=== PATIENT | female | born 1960 | race American Indian/Alaskan Native ===

== ENCOUNTER → 2024-07-04 | Day surgery (SDC) | payer MEDICARE ==
[~2024-07-04] MED LIST: ACETAMINOPHEN 1000 MG/100 ML 100 ML IV ONE; ACETAMINOPHEN-1 EAC4 PO; ADVAIR 250-501 EACH INH; AIMOVIG AU140 MG/1 M IM; APTIOM400 MG PO; ATORVASTATIN CA20 MG PO; CEFAZOLIN SODIUM 0 GM ONE; CELEBREX100 MG PO; CHERATUSSIN AC118 ML PO; CLARITIN-D 241 EACH PO; CRESTOR40 MG PO; DAPAGLIFLOZIN10 MG PO; DESLORATADINE5 MG PO; DEXAMETHASONE SOD PHOS INJ 4 MG/ML SDV ONE; FAMOTIDINE 20 MG/2 ML VIAL IV ONE; FAMOTIDINE20 MG PO; FENTANYL CITRATE/PF 100MCG/2 ML INJ ONE; FLONASE ALLERG9.9 ML INH; FLUOXETINE HCL10 MG PO; FUROSEMIDE40 MG PO; JANUMET XR 1001 EACH PO; LIDOCAINE HCL 2% LOCAL INJ 5 ML SDV VIAL INJ ONE; LIDOCAINE HCL50 ML TOP; LISINOPRIL10 MG PO; MONTELUKAST SOD10 MG PO; MORPHINE SULFAT15 M1 PO; NASONEX17 GM INH; NEURONTIN600 MG PO; ONDANSETRON HCL INJ 2MG/ML 2ML 2 MG/ML VIAL ONE; OZEMPIC2 MG/0.75 SC; POTASSIUM CHLO10 ME1 PO; PROAIR HFA INH8.5 GM IH; PROPOFOL IV EMULSION 10 MG/ML 20 ML VIAL ONE; SEVOFLURANE INHAL SOLN 250 ML PEN BTL ONE; SPIRONOLACTONE25 MG PO; SYSTANE 0.3-0.1 EACH OU; TRULANCE3 MG PO; VASCEPA1 GM PO; ZETIA10 MG PO; ZITHROMAX500 MG PO
[2024-07-04] MEDS: LACTATED RINGER'S 1,000 ML ONE (10:52)
[2024-07-04 10:55] LABS: BASOPHILS % 0.7 % (0.0-1.0); EOSINOPHILS # (AUTO) 0.1 (0.0-0.4); EOSINOPHILS % 1.4 % (0.0-6.0); HEMATOCRIT 39.7 % (34.2-44.1); HEMOGLOBIN 13.1 g/dL (12.0-16.0); LYMPHOCYTES # (AUTO) 2.1 (1.0-3.2); LYMPHOCYTES % 35.6 % (18.0-39.1); MEAN CORPUSCULAR VOLUME 94.1 fL (81-99); MONOCYTES # (AUTO) 0.5 (0.2-0.8); MONOCYTES % 7.7 % (4.4-11.3); NEUTROPHILS # (AUTO) 3.2 (2.1-6.9); NEUTROPHILS % 54.4 % (38.7-80.0); PLATELET COUNT 255 x10e3/uL (140-360); RED BLOOD COUNT 4.22 x10e6/uL (3.6-5.1); WHITE BLOOD COUNT 5.85 x10e3/uL (4.8-10.8)
[2024-07-04] MEDS: CEFTRIAXONE 1 GM VIAL ONE (10:57)
[2024-07-04] MEDS: DEXTROSE 50% SYRINGE 50 ML IV ONE (11:01)
[2024-07-04 11:14] LABS: INR 1.04; PROTHROMBIN TIME 14.2 seconds (11.9-14.5)
[2024-07-04 11:15] LABS: PARTIAL THROMBOPLASTIN TIME 26.9 seconds (23.8-35.5)
[2024-07-04 11:20] LABS: ALBUMIN 3.6 g/dL (3.5-5.0); ALBUMIN/GLOBULIN RATIO 1.3 (0.8-2.0); ANION GAP 14.8 mmol/L (8-16); BILIRUBIN,TOTAL 0.6 mg/dL (0.2-1.2); CALCIUM 9.1 mg/dL (8.4-10.2); CREATININE, SERUM 0.77 mg/dL (0.57-1.11); POTASSIUM 3.8 mmol/L (3.5-5.1); TOTAL PROTEIN 6.4 g/dL (6.5-8.1)
[2024-07-04 12:17] VITALS: TEMP 98
[2024-07-04] MEDS: PHENAZOPYRIDINE HCL 100 MG TAB ONE (12:43)
[2024-07-04 13:05] VITALS: BP 118/63; PULSE 71; RESP 18; O2SAT 99
== END | disposition home or self-care (01) ==
LOC: OR 09:52
PROVIDERS: ATTEND Urology
DX: N35.92 Unspecified urethral stricture, female (principal); N39.0 Urinary tract infection, site not specified; N81.10 Cystocele, unspecified; N36.41 Hypermobility of urethra; N81.6 Rectocele; N95.2 Postmenopausal atrophic vaginitis; R32 Unspecified urinary incontinence; I25.10 Atherosclerotic heart disease of native coronary artery without angina pectoris; N20.9 Urinary calculus, unspecified; I25.2 Old myocardial infarction; I11.0 Hypertensive heart disease with heart failure; I50.9 Heart failure, unspecified; E78.5 Hyperlipidemia, unspecified; J45.909 Unspecified asthma, uncomplicated; E11.9 Type 2 diabetes mellitus without complications; E66.9 Obesity, unspecified; F41.9 Anxiety disorder, unspecified; F32.A Depression, unspecified; Z88.2 Allergy status to sulfonamides; Z88.8 Allergy status to other drugs, medicaments and biological substances; Z88.1 Allergy status to other antibiotic agents; Z91.040 Latex allergy status; Z79.85 Long-term (current) use of injectable non-insulin antidiabetic drugs; Z79.899 Other long term (current) drug therapy
CPT/HCPCS: 36415; 52281; 71046; 74420; 80053; 82948; 85025; 85610; 85730; 87086; 93005; C1758; J0131; J0696; J1100; J2003; J2405; J2704; J3010; J7121; J7799; J1308